=== PATIENT | male | born 1990 | race Caucasian/White ===

== ENCOUNTER 2017-01-07 23:22 | Emergency (ER) | payer OTHER ==
[~2017-01-07] VITALS: Ht 167.6 cm; Wt 61.2 kg
[2017-01-07 23:38] VITALS: BP 140/90
--- NOTE | 2017-01-07 23:59 | NUR ---
PT TAKEN TO BED 8
--- NOTE | 2017-01-08 00:11 | NUR ---
Dr. Silva evaluating patient at bedside.
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
--- NOTE | 2017-01-08 00:19 | NUR ---
X-Ray at bedside.
--- NOTE | 2017-01-08 01:00 | NUR ---
Patient discharged with v/s stable. Written and verbal after care instructions given and explained. Patient verbalized understanding. Ambulatory with steady gait. All questions addressed prior to discharge. Advised to follow up with PMD.
[2017-01-08 01:40] VITALS: BP 130/85
== END 2017-01-08 01:00 | disposition home or self-care (01) ==
LOC: MED 23:22
DX: S60.111A Contusion of right thumb with damage to nail, initial encounter (principal); R03.0 Elevated blood-pressure reading, without diagnosis of hypertension; W22.8XXA Striking against or struck by other objects, initial encounter; Y93.89 Activity, other specified; Y92.89 Other specified places as the place of occurrence of the external cause; Y99.8 Other external cause status
CPT/HCPCS: 11740; 73130; 90471; 90715; 99284; Q0092

== ENCOUNTER 2018-10-20 21:59 | Emergency (ER) | payer SELFPAY ==
[~2018-10-20] VITALS: Ht 167.6 cm; Wt 63.5 kg
[2018-10-20 22:00] VITALS: BP 137/90
--- NOTE | 2018-10-20 22:02 | NUR ---
TO LOBBY A/W BED , AMBULATORY
--- NOTE | 2018-10-20 23:00 | NUR ---
PT PRESENTS TO THE ED WITH C/O BUE AND BLE RASHES X2 DAYS. PATIENT STATES HE HAS HX OF PSORIASIS AND CHICKEN POX. ETHYMA NOTED TO BUE AND BLE. NO DRAINAGE NOTED. NO S/S OF DISTRESS AT THIS TIME. PT DENIES PAIN
--- NOTE | 2018-10-20 23:17 | NUR ---
PT TAKEN TO BED 8.
--- NOTE | 2018-10-20 23:35 | NUR ---
Dr. Mcbride examining patient.
[2018-10-20] MEDS ORDERED: methylPREDNISolone SS 125 MG in WATER STERILE 2 ML IM ONE (23:40)
--- NOTE | 2018-10-21 00:10 | NUR ---
Patient discharged with v/s stable. Written and verbal after care instructions given and explained. Patient alert, oriented and verbalized understanding of instructions. Ambulatory with steady gait. All questions addressed prior to discharge. ID band removed. Patient advised to follow up with PMD. Rx of DIPHENHYDRAMINE AND PREDNISONE given. Patient educated on indication of medication including possible reaction and side effects. Opportunity to ask questions provided and answered.
[2018-10-21 00:15] VITALS: BP 137/90
== END 2018-10-21 00:10 | disposition home or self-care (01) ==
LOC: MED 21:59
DX: L23.9 Allergic contact dermatitis, unspecified cause (principal); J45.909 Unspecified asthma, uncomplicated
CPT/HCPCS: 96372; 99283; J2930; Q0163

== ENCOUNTER 2019-11-01 15:32 | Emergency (ER) | payer SELFPAY ==
[~2019-11-01] VITALS: Ht 167.6 cm; Wt 63.5 kg
[2019-11-01 16:25] VITALS: BP 121/81
--- NOTE | 2019-11-01 16:34 | NUR ---
concerned over mother and sibiling tested positive for COVIG-19 , tested last week and resulted yesterday as per pt c/o n/v, diarrhea, bodyaches, headache mild---
--- NOTE | 2019-11-01 17:17 | NUR ---
COVIG-19 SWAB COLLECTED
[2019-11-01 17:18] VITALS: BP 121/81
== END 2019-11-01 17:18 | disposition home or self-care (01) ==
LOC: MED 15:32
DX: R50.9 Fever, unspecified (principal); M79.10 Myalgia, unspecified site; R05 Cough; J45.909 Unspecified asthma, uncomplicated; Z20.828 Contact with and (suspected) exposure to other viral communicable diseases
CPT/HCPCS: 99283; U0003

== ENCOUNTER 2023-06-02 12:03 | Emergency (ER) | payer OTHER ==
[~2023-06-02] VITALS: Ht 167.6 cm; Wt 61.7 kg
[2023-06-02 12:10] VITALS: BP 143/98; PULSE 73; RESP 20; TEMP 97.5; O2SAT 98
[2023-06-02] MEDS ORDERED: PENICILLIN G BENZATHINE L-A 1.2 MU/2 ML SYR IM ONE (13:35)
== END 2023-06-02 14:10 | disposition home or self-care (01) ==
LOC: MED 12:03
DX: A53.9 Syphilis, unspecified (principal); R21 Rash and other nonspecific skin eruption; Z79.899 Other long term (current) drug therapy
CPT/HCPCS: 36415; 86592; 87081; 87529; 96372; 99283; J0561

== ENCOUNTER 2023-06-09 16:08 | Emergency (ER) | payer OTHER ==
[~2023-06-09] VITALS: Ht 162.6 cm; Wt 68.0 kg
[2023-06-09 16:28] VITALS: BP 124/89; PULSE 95; RESP 18; TEMP 98; O2SAT 98
[2023-06-09] MEDS ORDERED: cefTRIAXone 1,000 MG VIAL ONE (18:53)
== END 2023-06-09 19:46 | disposition home or self-care (01) ==
LOC: MED 16:08
DX: A53.9 Syphilis, unspecified (principal); Z79.899 Other long term (current) drug therapy
CPT/HCPCS: 96374; 99283; J0696